=== PATIENT | female | born 1960 | race Caucasian/White ===

== ENCOUNTER 2019-04-07 10:37 | Inpatient (IN) ==
[2019-04-07] MEDS ORDERED: IOPAMIDOL 100 ML BOTTLE IV ONE (10:38)
[2019-04-07] MEDS ORDERED: IPRATROPIUM/ALBUTEROL 3 ML AMPUL.NEB NEB ONE ×3 (10:48→19:14)
--- NOTE | 2019-04-07 11:14 | Emergency Department Note ---
SOB HPI - General Chief Complaint: Shortness of Breath/Dyspnea Stated Complaint: SOB Time Seen by Provider: 04/07/19 10:49 Source: patient Mode of arrival: ambulatory Limitations: no limitations - History of Present Illness This 58-year-old female was sent over from pulmonary clinic with acute shortness of breath, 1 more dyspnea reported. Here she was able to ambulate and move and get around but had expiratory and expiratory wheezes and was given a DuoNeb. She is able to get up to go to the bathroom on her own. Oximetry was 95 to 98% on room air. Patient was given a DuoNeb due to inspiratory and expiratory wheezes with only mild benefit and so was given a second DuoNeb. She reports that the main reason she was sent over was that her lungs sounded bad. She has been using her home inhalers. She is not certain of all of her inhalers. She believes Spiriva and albuterol and then a nebulizer. 6 days ago she started to feel better. She had had onset about 2 weeks ago of upper respiratory type of symptoms. But then developed some diarrhea subsequently and since then its "been a struggle". She had a flu shot on the . She reports that she had an allergy to a steroid injection related to her shoulder sometime last year and was told by Dr. Olmos that she should not have any further steroids. She reported that her symptoms after the steroid shot included her blood pressure elevated her face felt burnt and red, etc. Records from Dr. Olmos's office were requested around 11:30 AM. REVIEW OF SYSTEMS: Has been checking her temperature at home and getting normal temperatures including 97.4. Has felt cold chills as well as some hot sweats at times. Has felt ear pain and runny nose began on the . Feels some tightness in her chest area but not specifically pain. Coughing is off and on but some worse. She has been using her nebulizer 4 times per day at home since the . Before this was using it only 2-3 times per week. No nausea or vomiting. She has had diarrhea for several days may be can as many as 5 or 6 days. She has had it once this morning. She describes it is quite watery. She has some chronic thigh achiness. Feels dizzy and lightheaded. Has a history of pulmonary embolus of uncertain origin. Was on warfarin for 10 months. This was back in 2017/early 2018. Previous H. pylori was treated. Previous hepatitis C which she had as a chronic condition was also treated and has had several test since that confirmed that it was cured. - Related Data Home Medications Medication Instructions Recorded Confirmed acetaminophen 500 mg tablet 500 mg PO Q6H 11/09/17 04/07/19 albuterol sulfate 90 mcg/actuation See Rx Instructions INHALATION QID 11/09/17 04/07/19 aerosol inhaler PRN g tiotropium bromide 2.5 2 puff INHALATION QDAY 11/09/17 04/07/19 mcg/actuation mist for inhalation omeprazole 20 mg capsule,delayed 40 mg PO QAM cap 03/13/18 04/07/19 release ibuprofen 200 mg capsule 200 mg PO Q6H 04/07/19 04/07/19 Allergies Allergy/AdvReac Type Severity Reaction Status Date / Time steriods AdvReac Severe Other Uncoded 09/17/18 09:48 Past Medical History - Past Medical History [facility] Narrative: Medical History (Last Updated 04/07/19 @ 11:12 by Inocente Ortega DO) History of tobacco use (Chronic) IV drug user (Chronic) Chronic obstructive lung disease (Chronic) Asthma (Chronic) History of pulmonary embolism (Chronic) Hypertension, essential (Chronic) History of bronchitis (Chronic) Cervical cancer (Chronic) Prediabetes (Chronic) Reactive airway disease (Chronic) Obesity (Chronic) History of malignant neoplasm of cervix (Chronic) Degeneration of intervertebral disc (Chronic) GERD (gastroesophageal reflux disease) (Chronic) Chronic hepatitis C (Chronic) H. pylori infection (Acute) Acute exacerbation of chronic obstructive airways disease with asthma (Resolved) Candidiasis of skin (Resolved) Dyspnea (Resolved) History of gastroenteritis (Resolved) Pulmonary embolism (Resolved) Viral gastroenteritis (Resolved) Hallux valgus (Inactive) Past Surgical History (Last Reviewed 04/07/19 @ 10:32 by ALEX Benavidez) History of adenoidectomy (Chronic) History of appendectomy (Chronic) History of hernia repair (Chronic) History of tonsillectomy (Chronic) History of total abdominal hysterectomy (Chronic) Family History (Last Reviewed 04/07/19 @ 10:33 by ALEX Benavidez) Sister Diabetes mellitus History of colectomy Mother Diabetes mellitus Grandmother Heart disease - Social History smoking status: Current some day smoker Physical Exam Limitations: no limitations General appearance: alert, consternation (Slight or mild), in distress (With some difficulties breathing but here 7 or 8 word dyspnea.), malaise (Mild-moderate) Head: atraumatic, normocephalic Eye: Present: EOMI ENT: Present: normal oropharynx, mucous membranes moist, TM's normal bilaterally Neck: Present: trachea midline. Absent: lymphadenopathy, thyromegaly Chest: Present: symmetric chest wall rise Respiratory: Present: respiratory distress, wheezes (Polyphonic foote expiratory in all lung espinosa.), accessory muscle use, prolonged expiratory phase (Slight or mild mild), other (Occasional wet cough). Absent: stridor Cardiovascular: Present: regular rate, normal rhythm. Absent: systolic murmur, diastolic murmur Abdominal: Present: soft. Absent: distention, tenderness, guarding, rebound, rigidity, organomegaly, mass Extremities: Absent: pedal edema, pretibial edema, calf tenderness Back: Absent: CVA tenderness (R), CVA tenderness (L), spinous process tenderness Neurological: Present: alert, oriented X3 Psychiatric: Present: anxious, serious. Absent: tearful, poor eye contact Skin: Present: warm, dry Course Vital Signs Temperature 97.0 F 04/07/19 10:37 Pulse Rate 95 H 04/07/19 10:37 Respiratory Rate 25 H 04/07/19 10:37 Blood Pressure 126/74 04/07/19 10:37 Pulse Oximetry (%) 95 04/07/19 10:37 Temperature 97 F 04/08/19 07:00 Pulse Rate 58 L 04/08/19 07:22 Respiratory Rate 16 04/08/19 07:22 Blood Pressure 118/74 04/08/19 07:00 Pulse Oximetry (%) 96 04/08/19 07:18 Shortness of Breath/Dyspnea - [facility] Narrative Medical decision making narrative: 11:07 AM - patient seen and interviewed. Market shortness of breath with histor y of similar and same with difficulties with steroid. We will try to get previous records. Labs, EKG, chest x-ray, ABG. 11:35 AM - EKG demonstrates lateral lead nonspecific changes. Old EKG reques lyndsey. 12:25 AM - old EKG from [facility] did not show the same nonspecific lateral lead changes. This was from earlier this year. 12:29 PM - respiratory therapist have been unable to do ABG after 4 attempts. Venous BG ordered. 12:31 PM - still with quite wheezy but not has rapid breathing. She still has mild polyphonic expiratory wheezes throughout the expiratory phase anteriorly. We will go with a heart neb. Because of headache I will give her some Tylenol. 1:15 PM -chest x-ray to me appears unremarkable for infiltrate or active disease. She has a history of PE. Her d-dimer is 0.543. Will do CT angio of the chest. 3:55 PM - patient is still wheezing quite dramatically or significantly and requiring some oxygen supplementation. I spoke with Dr. Campos, hospitalist, who kindly accepts this patient for admission due to COPD exacerbation, steroid allergy, hypoxia. - Lab Data Lab results reviewed: Yes I reviewed the patient's lab results. Result diagrams: 04/07/19 12:01 04/07/19 12:01 Lab Results 04/07/19 04/07/19 04/07/19 Range/Units 11:51 12:01 12:01 WBC 5.8 (4.5-11.0) K/mcL RBC 5.76 H (4.00-5.20) M/mcL Hgb 16.9 H (12.0-15.0) g/dL Hct 49.9 H (36.0-48.0) % MCV 86.6 (80.0-100.0) fL MCH 29.3 (26.0-34.0) pg MCHC 33.9 (31.0-36.0) g/dL RDW 13.8 (11.5-14.5) % Plt Count 149 (140-440) K/mcL MPV 8.2 (7.4-10.4) fL Gran % 66.9 (38.0-78.0) % Lymph % (Auto) 26.8 (15.5-49.0) % Brooks % (Auto) 5.6 (1.0-12.0) % Eos % (Auto) 0.5 (0.0-7.0) % Baso % (Auto) 0.2 (0.0-2.0) % Gran # 3.9 (1.8-8.0) K/mcL Lymph # (Auto) 1.6 (1.5-4.8) K/mcL Brooks # (Auto) 0.3 (0.1-0.9) K/mcL Eos # (Auto) 0 (0.0-0.7) K/mcL Baso # (Auto) 0 (0.0-0.3) K/mcL D-Dimer 0.53 H (0.00-0.40) ug/ml ABG Methemoglobin (0.4-1.5) % VBG pH (7.32-7.42) U VBG pCO2 (41.0-51.0) mmHg VBG pO2 (25-40) mmHg VBG HCO3 (24.0-28.0) mmol/L VBG Total CO2 (25.0-29.0) mmol/L VBG O2 Saturation (40.0-70.0) % VBG Base Excess (-2.0-2.0) Carboxyhemoglobin (0.0-1.5) % THgb Total Hemoglobin (12.0-15.0) gm/dL O2 Delivery Level Sodium (133-145) mmol/L Potassium (3.3-5.1) mmol/L Chloride (96-108) mmol/L Carbon Dioxide (22-30) mmol/L Anion Gap (8-16) BUN (6-20) mg/dl Creatinine (0.6-1.1) mg/dl GFR Calculation Glucose (70-105) mg/dL Calcium (8.6-10.4) mg/dl Total Bilirubin (0.0-1.0) mg/dL AST (0-37) U/l ALT (0-40) U/l Alkaline Phosphatase (39-117) U/L Troponin T < 0.01 (0-0.03) ng/ml C-Reactive Protein (0.0-0.8) mg/dl Total Protein (5.9-8.4) gm/dL Albumin (3.2-5.2) gm/dL Globulin (2.2-3.7) gm/dL Albumin/Globulin Ratio (1.0-2.3) Procalcitonin (<0.10) ng/mL 10/28/19 10/28/19 10/28/19 Range/Units 12:01 12:01 12:01 WBC (4.5-11.0) K/mcL RBC (4.00-5.20) M/mcL Hgb (12.0-15.0) g/dL Hct (36.0-48.0) % MCV (80.0-100.0) fL MCH (26.0-34.0) pg MCHC (31.0-36.0) g/dL RDW (11.5-14.5) % Plt Count (140-440) K/mcL MPV (7.4-10.4) fL Gran % (38.0-78.0) % Lymph % (Auto) (15.5-49.0) % Brooks % (Auto) (1.0-12.0) % Eos % (Auto) (0.0-7.0) % Baso % (Auto) (0.0-2.0) % Gran # (1.8-8.0) K/mcL Lymph # (Auto) (1.5-4.8) K/mcL Brooks # (Auto) (0.1-0.9) K/mcL Eos # (Auto) (0.0-0.7) K/mcL Baso # (Auto) (0.0-0.3) K/mcL D-Dimer (0.00-0.40) ug/ml ABG Methemoglobin 0.1 L (0.4-1.5) % VBG pH 7.46 H (7.32-7.42) U VBG pCO2 28.4 L (41.0-51.0) mmHg VBG pO2 123 H (25-40) mmHg VBG HCO3 19.7 L (24.0-28.0) mmol/L VBG Total CO2 20.6 L (25.0-29.0) mmol/L VBG O2 Saturation 94.9 H (40.0-70.0) % VBG Base Excess -2.6 L (-2.0-2.0) Carboxyhemoglobin 3.9 H (0.0-1.5) % THgb Total Hemoglobin 15.9 H (12.0-15.0) gm/dL O2 Delivery Level Not Reportable Sodium 136 (133-145) mmol/L Potassium 3.8 (3.3-5.1) mmol/L Chloride 101 (96-108) mmol/L Carbon Dioxide 19 L (22-30) mmol/L Anion Gap 16.0 (8-16) BUN 17 (6-20) mg/dl Creatinine 1.0 (0.6-1.1) mg/dl GFR Calculation 62 Glucose 189 H (70-105) mg/dL Calcium 9.8 (8.6-10.4) mg/dl Total Bilirubin 0.4 (0.0-1.0) mg/dL AST 23 (0-37) U/l ALT 12 (0-40) U/l Alkaline Phosphatase 53 (39-117) U/L Troponin T (0-0.03) ng/ml C-Reactive Protein (0.0-0.8) mg/dl Total Protein 7.5 (5.9-8.4) gm/dL Albumin 4.3 (3.2-5.2) gm/dL Globulin 3.2 (2.2-3.7) gm/dL Albumin/Globulin Ratio 1.3 (1.0-2.3) Procalcitonin < 0.05 (<0.10) ng/mL 04/07/19 Range/Units 12:31 WBC (4.5-11.0) K/mcL RBC (4.00-5.20) M/mcL Hgb (12.0-15.0) g/dL Hct (36.0-48.0) % MCV (80.0-100.0) fL MCH (26.0-34.0) pg MCHC (31.0-36.0) g/dL RDW (11.5-14.5) % Plt Count (140-440) K/mcL MPV (7.4-10.4) fL Gran % (38.0-78.0) % Lymph % (Auto) (15.5-49.0) % Brooks % (Auto) (1.0-12.0) % Eos % (Auto) (0.0-7.0) % Baso % (Auto) (0.0-2.0) % Gran # (1.8-8.0) K/mcL Lymph # (Auto) (1.5-4.8) K/mcL Brooks # (Auto) (0.1-0.9) K/mcL Eos # (Auto) (0.0-0.7) K/mcL Baso # (Auto) (0.0-0.3) K/mcL D-Dimer (0.00-0.40) ug/ml ABG Methemoglobin (0.4-1.5) % VBG pH (7.32-7.42) U VBG pCO2 (41.0-51.0) mmHg VBG pO2 (25-40) mmHg VBG HCO3 (24.0-28.0) mmol/L VBG Total CO2 (25.0-29.0) mmol/L VBG O2 Saturation (40.0-70.0) % VBG Base Excess (-2.0-2.0) Carboxyhemoglobin (0.0-1.5) % THgb Total Hemoglobin (12.0-15.0) gm/dL O2 Delivery Level Sodium (133-145) mmol/L Potassium (3.3-5.1) mmol/L Chloride (96-108) mmol/L Carbon Dioxide (22-30) mmol/L Anion Gap (8-16) BUN (6-20) mg/dl Creatinine (0.6-1.1) mg/dl GFR Calculation Glucose (70-105) mg/dL Calcium (8.6-10.4) mg/dl Total Bilirubin (0.0-1.0) mg/dL AST (0-37) U/l ALT (0-40) U/l Alkaline Phosphatase (39-117) U/L Troponin T (0-0.03) ng/ml C-Reactive Protein 0.8 (0.0-0.8) mg/dl Total Protein (5.9-8.4) gm/dL Albumin (3.2-5.2) gm/dL Globulin (2.2-3.7) gm/dL Albumin/Globulin Ratio (1.0-2.3) Procalcitonin (<0.10) ng/mL - Radiology Data Radiology results reviewed: Yes I reviewed the patient's radiology results. - EKG Data EKG attestation: Yes There are no EKG findings of acute coronary syndrome, Yes This EKG will be read by podiatric technician EKG shows normal: Reports: sinus rhythm Interpretation: Reports: nonspecific ST-T wave changes (In the lateral leads) Disposition Pt seen by PUBLIC RELATIONS COORDINATOR/PA only: No Clinical Impression: Acute exacerbation of chronic obstructive airways disease, Hypoxia, Allergy or intolerance to drug Disposition: Xfer As Inpt ([facility]) Condition: Fair
[2019-04-07] MEDS ORDERED: ACETAMINOPHEN 325 MG TABLET PO ONE ×2 (12:32→19:29)
[2019-04-07] MEDS ORDERED: ALBUTEROL SULFATE 5 MG/ML NEB SOLUTION BOTTLE NEB ONE (12:33)
[2019-04-07 12:37] LABS: Basophils # (Auto) 0 K/mcL (0.0-0.3); Basophils % (Auto) 0.2 % (0.0-2.0); Eosinophils # (Auto) 0 K/mcL (0.0-0.7); Eosinophils % (Auto) 0.5 % (0.0-7.0); Granulocytes % (Auto) 66.9 % (38.0-78.0); Hematocrit 49.9 % (36.0-48.0); Hemoglobin 16.9 g/dL (12.0-15.0); Lymphocytes # (Auto) 1.6 K/mcL (1.5-4.8); Lymphocytes % (Auto) 26.8 % (15.5-49.0); Mean Cell Volume 86.6 fL (80.0-100.0); Mean Corpuscular HGB Conc 33.9 g/dL (31.0-36.0); Mean Platelet Volume 8.2 fL (7.4-10.4); Monocytes # (Auto) 0.3 K/mcL (0.1-0.9); Monocytes % (Auto) 5.6 % (1.0-12.0); Platelet Count 149 K/mcL (140-440); RBC 5.76 M/mcL (4.00-5.20); Red Cell Distribution Width 13.8 % (11.5-14.5); WBC 5.8 K/mcL (4.5-11.0)
[2019-04-07 12:58] LABS: ABG Methemoglobin 0.1 % (0.4-1.5); Total Hemoglobin 15.9 gm/dL (12.0-15.0); VBG Base Excess -2.6 (-2.0-2.0); VBG HCO3 19.7 mmol/L (24.0-28.0); VBG Oxygen Saturation 94.9 % (40.0-70.0); VBG PCO2 28.4 mmHg (41.0-51.0); VBG PH 7.46 U (7.32-7.42); VBG PO2 123 mmHg (25-40); VBG Total CO2 20.6 mmol/L (25.0-29.0)
[2019-04-07 13:00] LABS: ALT/SGPT 12 U/l (0-40); AST/SGOT 23 U/l (0-37); Albumin 4.3 gm/dL (3.2-5.2); Albumin/Globulin Ratio 1.3 (1.0-2.3); Alkaline Phosphatase 53 U/L (39-117); Bilirubin,Total 0.4 mg/dL (0.0-1.0); Blood Urea Nitrogen 17 mg/dl (6-20); Calcium 9.8 mg/dl (8.6-10.4); Carbon Dioxide 19 mmol/L (22-30); Chloride 101 mmol/L (96-108); Globulin 3.2 gm/dL (2.2-3.7); Glomerular Filtration Rate 62; Glucose 189 mg/dL (70-105)
--- NOTE | 2019-04-07 14:09 | XRay Report ---
INDICATION: Dyspnea TECHNIQUE: PA and lateral upright chest x-ray COMPARISON: None FINDINGS:Lungs are negative. No parenchymal infiltrate or mass. Heart size and vascularity are normal. There is no pulmonary edema or pulmonary congestion Isabela and mediastinum are negative. There is no pleural fluid. Thoracic spine is negative IMPRESSION: Negative PA and lateral chest x-ray Interpreted and Authenticated by: Gino Acosta 04/07/19
--- NOTE | 2019-04-07 15:01 | Cat Scan Report ---
CLINICAL INFORMATION: History of pulmonary embolism. Dyspnea TECHNIQUE: axial postcontrast enhanced images through the chest. Sagittal and coronal reformatted images. MIP reformatted images. COMPARISON: Previous chest x-ray dated 04/07/2019 FINDINGS: Main pulmonary artery, right pulmonary artery, left pulmonary artery are negative. No intraluminal filling defects. No lobar, segmental, or subsegmental emboli. There is a small hiatal hernia. There is centrilobular emphysema in the upper lobes. This suggests a smoking history. Clinical correlation is necessary. There is mild bilateral lower lobe parenchymal infiltrate, right worse than left. Right lower lobe pneumonia is possible. There is also mild right lower lobe bronchiectasis. There is no pulmonary parenchymal mass. No hilar or mediastinal lymphadenopathy. There is no axillary adenopathy. The right hemithorax is smaller than the left. Clinical correlation for previous lobectomy recommended. There are no rib fractures. No sternal fracture. No vertebral body compression fractures IMPRESSION: 1. Negative pulmonary CTA 2. Mild centrilobular emphysema. Clinical correlation for smoking history recommended 3. Bilateral lower lobe infiltrate, right worse on left. Right lower lobe pneumonia is possible 4. Small hiatal hernia Interpreted and Authenticated by: Gino Acosta 04/07/19
--- NOTE | 2019-04-07 16:54 | Internal Med History&Physical ---
Medical - H&P: HPI Patient information: Note initiated : 04/07/19 at 4:48 pm Service Date, if different from initiated Date: [] Patient: Julisa Payne a 58 y/o F admitted on for Shortness of breath. Chief Complaint: [] History of present illness: Ms. Payne is a 58 year old F Presents to the ED with shortness of breath. Patient states that couple weeks ago she got cold symptoms putting some wheezing. Last Sunday she seemed to feel better and went for a walk. That night she was tired went to bed early and Sunday when she woke up she developed increasing shortness of breath more wheezing the symptoms progressed gradually through the rest of the week. 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 The office Dr. Hollis office by nurse practitioner who noted her labored breathing and sent her to the ED. In the ED work-up revealed what appeared to be a COPD exacerbation. She denies fevers or chills. She does have a headache. She has had diarrhea for the past couple days as well. She has a productive cough of green-yellow sputum. Her lungs feel tight. She does have history of PE and given her clear chest x-ray CTA was done which showed some mild lower lobe infiltrates right greater than left. Afebrile, PCT and CRP low, leukocytosis. Patient was given several breathing treatments. She was noted to be 87% on room air when she arrived. She has good sats on several liters but still appears a bit labored. She states she is intolerant to steroids. She had a shoulder injection steroid in the past as well as prednisone she says which gives her high blood pressure severe headache jitters and vomiting. Review of Systems: Positives as above. Denies fever/chills/nausea/vomiting/chest or abdominal pain/. Remaining 10 point review of system reviewed negative Medical - H&P: PM Medical history: Medical History (Last Updated 04/07/19 @ 13:19 by Inocente Ortega DO) History of tobacco use (Chronic) IV drug user (Chronic) Chronic obstructive lung disease (Chronic) Asthma (Chronic) History of pulmonary embolism (Chronic) Hypertension, essential (Chronic) History of bronchitis (Chronic) Cervical cancer (Chronic) Prediabetes (Chronic) Reactive airway disease (Chronic) Obesity (Chronic) History of malignant neoplasm of cervix (Chronic) Degeneration of intervertebral disc (Chronic) GERD (gastroesophageal reflux disease) (Chronic) Chronic hepatitis C (Chronic) H. pylori infection (Acute) Acute exacerbation of chronic obstructive airways disease with asthma (Resolved) Candidiasis of skin (Resolved) Dyspnea (Resolved) History of gastroenteritis (Resolved) Pulmonary embolism (Resolved) Viral gastroenteritis (Resolved) Hallux valgus (Inactive) Past Surgical History (Last Reviewed 04/07/19 @ 10:32 by ALEX Benavidez) History of adenoidectomy (Chronic) History of appendectomy (Chronic) History of hernia repair (Chronic) History of tonsillectomy (Chronic) History of total abdominal hysterectomy (Chronic) Family History (Last Reviewed 04/07/19 @ 10:33 by ALEX Benavidez) Sister Diabetes mellitus History of colectomy Mother Diabetes mellitus Grandmother Heart disease Social History (Last Updated 04/07/19 @ 10:36 by ALEX Benavidez) Smokes a pack per week denies alcohol use sometimes uses a cane lives at home with her son Medical - H&P: Meds Home Medications Medication Instructions Recorded Confirmed Type acetaminophen 500 mg tablet 500 mg PO Q6H 11/09/17 04/07/19 History albuterol sulfate 90 mcg/actuation See Rx Instructions INHALATION QID 11/09/17 04/07/19 History aerosol inhaler PRN g tiotropium bromide 2.5 2 puff INHALATION QDAY 11/09/17 04/07/19 History mcg/actuation mist for inhalation omeprazole 20 mg capsule,delayed 40 mg PO QAM cap 03/13/18 04/07/19 History release ibuprofen 200 mg capsule 200 mg PO Q6H 04/07/19 04/07/19 History Allergies Allergy/AdvReac Type Severity Reaction Status Date / Time steriods AdvReac Severe Other Uncoded 09/17/18 09:48 Medical - H&P: Exam - Constitutional Vitals: Temp Pulse Resp BP Pulse Ox 97.0 F 85 20 112/68 93 04/07/19 10:37 04/07/19 16:31 04/07/19 16:31 04/07/19 16:31 04/07/19 16:31 Exam: General: Alert, Awake, mild respiratory distress Eyes/N/T: EOMI, PEERL, DMM Head/Neck: neck supple, normocephalic atraumatic CV: RRR, No murmurs, normal s1/s2 Pulm: Diminished b/l, expiratory wheezing b/l, RLL rhonchi Abd: soft, nontender, +BS x4 Ext: no clubbing/cyanosis/edema Neuro: Alert, no focal deficits, moves all extremities, CN 2-12 grossly intact, symmetrical strength b/l upper/lower, sensations intact b/l upper/lower Skin: warm/dry Medical - H&P: Reslt - Labs CBC & Chem 7: 04/07/19 12:01 04/07/19 12:01 Labs: Short CBC 04/07/19 Range/Units 12:01 WBC 5.8 (4.5-11.0) K/mcL Hgb 16.9 H (12.0-15.0) g/dL Hct 49.9 H (36.0-48.0) % Plt Count 149 (140-440) K/mcL BMP 04/07/19 12:01 Sodium 136 Potassium 3.8 Chloride 101 Carbon Dioxide 19 L BUN 17 Creatinine 1.0 Glucose 189 H Calcium 9.8 Cardiac Enzymes 04/07/19 Range/Units 11:51 Troponin T < 0.01 (0-0.03) ng/ml Liver Function 04/07/19 Range/Units 12:01 Total Bilirubin 0.4 (0.0-1.0) mg/dL AST 23 (0-37) U/l ALT 12 (0-40) U/l Alkaline Phosphatase 53 (39-117) U/L Albumin 4.3 (3.2-5.2) gm/dL - ABG Interpretation ABG results: 04/07/19 12:01 ABG Methemoglobin 0.1 L VBG pH 7.46 H VBG pCO2 28.4 L VBG pO2 123 H VBG HCO3 19.7 L VBG Total CO2 20.6 L VBG O2 Saturation 94.9 H VBG Base Excess -2.6 L - Impressions CTA with some very mild infiltrate in the left and little bit more infiltrate in the right base Medical - H&P: A/P - Narrative A/P Narrative: A: *AECOPD: *Acute on chronic hypoxic respiratory failure: *Tobacco abuse: *GERD: * P: -yamilet/prn nebs -IS/Acapella/RT -Unable to use glucocorticoids given severe reaction -Empiric antibiotics -cont pulse ox -resp viral panel -f/u with pulmonology outpt -Smoking cessation counseling -ppx: lovenox/home ppi full code
[2019-04-07] MEDS ORDERED: LACTULOSE 20 GM/30 ML ORAL.SOL PO PRN (18:01)
[2019-04-07] MEDS ORDERED: DEXTROSE 50% 50 ML VIAL IV PRN (18:01)
[2019-04-07] MEDS ORDERED: POTASSIUM CHLORIDE 20 MEQ TABLET PO PRN ×2 (18:01)
[2019-04-07] MEDS ORDERED: IPRATROPIUM/ALBUTEROL 3 ML AMPUL.NEB NEB PRN (18:01)
[2019-04-07] MEDS ORDERED: POLYETHYLENE GLYCOL 3350 17 GM PACKET PO PRN (18:01)
[2019-04-07] MEDS ORDERED: DEXTROSE 31 GM ORAL.SUSP PO PRN (18:01)
[2019-04-07] MEDS ORDERED: POTASSIUM CHLORIDE 40 MEQ in DEXTROSE 5% IN WATER 500 ML IV PRN (18:01)
[2019-04-07] MEDS ORDERED: ONDANSETRON 4 MG/2 ML VIAL IV PRN (18:01)
[2019-04-07] MEDS ORDERED: MAGNESIUM SULFATE 2 GM/50 ML BAG IV PRN (18:01)
[2019-04-07] MEDS ORDERED: SENNOSIDES 1 TABLET PO PRN (18:01)
[2019-04-07] MEDS: 0.9 % SODIUM CHLORIDE 1,000 ML IV SCH (18:48)
[2019-04-07] MEDS: 0.9 % SODIUM CHLORIDE 10 ML SYRINGE IV SCH ×2 (18:48→21:56)
[2019-04-07] MEDS: AZITHROMYCIN 500 MG in DEXTROSE 5% IN WATER 250 ML IV SCH (18:58)
[2019-04-07] MEDS: IPRATROPIUM/ALBUTEROL 3 ML AMPUL.NEB NEB SCH (19:15)
[2019-04-07] MEDS: ACETAMINOPHEN 325 MG TABLET PO PRN (19:27)
[2019-04-07] MEDS: DOCUSATE SODIUM 100 MG CAPSULE PO SCH (21:57)
[2019-04-07] MEDS: MONTELUKAST 10 MG TABLET PO SCH (21:57)
[2019-04-08] MEDS: IPRATROPIUM/ALBUTEROL 3 ML AMPUL.NEB NEB SCH ×2 (01:20→07:17)
[2019-04-08] MEDS: 0.9 % SODIUM CHLORIDE 1,000 ML IV SCH (01:27)
[2019-04-08] MEDS: ACETAMINOPHEN 325 MG TABLET PO PRN ×3 (03:38→18:45)
[2019-04-08] MEDS: 0.9 % SODIUM CHLORIDE 10 ML SYRINGE IV SCH ×3 (05:22→21:10)
--- NOTE | 2019-04-08 07:08 | Internal Med Progress Note ---
Medical - PN: Subj Patient information: Note initiated : 04/08/19 at 7:05 am Service Date, if different from initiated Date: [] Patient: Julisa Payne a 58 y/o F admitted on 04/07/19 for Shortness of breath. Chief Complaint: [] Interval history: Ms. Payne is a 58 year old F Presents to the ED with shortness of breath. Patient states that couple weeks ago she got cold symptoms putting some wheezing. Last Sunday she seemed to feel better and went for a walk. That night she was tired went to bed early and Sunday when she woke up she developed increasing shortness of breath more wheezing the symptoms progressed gradually through the rest of the week. She had appointment with her asphalt dauber on Sunday and this waited that appointment instead of trying to get an appointment with PCP prior. The office Dr. Hollis office by nurse practitioner who noted her labored breathing and sent her to the ED. In the ED work-up revealed what appeared to be a COPD exacerbation. She denies fevers or chills. She does have a headache. She has had diarrhea for the past couple days as well. She has a productive cough of green-yellow sputum. Her lungs feel tight. She does have history of PE and given her clear chest x-ray CTA was done which showed some mild lower lobe infiltrates right greater than left. Afebrile, PCT and CRP low, leukocytosis. Patient was given several breathing treatments. She was noted to be 87% on room air when she arrived. She has good sats on several liters but still appears a bit labored. She states she is intolerant to steroids. She had a shoulder injection steroid in the past as well as prednisone she says which gives her high blood pressure severe headache jitters and vomiting. 04/08 Was feeling better this morning while she was getting up going to the bathroom brushing her teeth but then she had a coughing fit which left her very short of breath and labored breathing which she gradually and slowly recover from. She did maintain good oxygen saturations during the course. She feels like the albuterol gives her headache. Overall her cough and shortness of breath improved with the exception of this coughing fit Review of Systems: denies fever/chills/nausea/vomiting/chest or abdominal pain/diarrhea. Otherwise see above. - Constitutional Vitals: Vital Signs Temp Pulse Resp BP Pulse Ox 98.0 F 67 20 107/70 93 04/08/19 03:33 04/08/19 03:33 04/08/19 03:33 04/08/19 03:33 04/08/19 03:33 Period Temp Pulse Resp BP Sys/Berger Pulse Ox Last 24 Hr 97.0 F-98.3 F 67-109 8-27 96-156/63-104 87-98 Intake and Output 04/07/19 04/08/19 04/08/19 21:59 05:59 13:59 Intake Total 120 1855 Output Total 300 Balance 120 1555 Weight 86.183 kg Intake & Output: Intake & Output 04/07/19 04/08/19 04/08/19 21:59 05:59 13:59 Intake Total 120 1855 Output Total 300 Balance 120 1555 Weight 86.183 kg Intake: IV 1000 Sodium Chloride 0.9% 1,000 ml @ 1000 175 mls/hr IV .Q5H43M [facility] Rx#: [id number] Oral 120 855 Output: Void Amount 300 Other: Meal Dinner Percent of Meal Consumed 100% Feeding Ability Independent Urine Appearance Clear Urine Color Bright Yellow Exam: General: Alert, Awake, mild respiratory distress Eyes/N/T: EOMI, Head/Neck: neck supple, CV: RRR, No murmurs, Pulm: Diminished b/l, expiratory wheezing b/l, RLL rhonchi -all still present but improving Abd: soft, nontender, +BS x4 Ext: no clubbing/cyanosis/edema Neuro: Alert, no focal deficits, moves all extremities, Skin: warm/dry Medical - PN: Obj Da - Labs CBC & Chem 7: 04/07/19 12:01 04/07/19 12:01 Labs: Abnormal Lab Results 04/07/19 04/07/19 04/07/19 12:01 12:01 12:01 RBC Hgb Hct D-Dimer 0.53 H ABG Methemoglobin 0.1 L VBG pH 7.46 H VBG pCO2 28.4 L VBG pO2 123 H VBG HCO3 19.7 L VBG Total CO2 20.6 L VBG O2 Saturation 94.9 H VBG Base Excess -2.6 L Carboxyhemoglobin 3.9 H Total Hemoglobin 15.9 H Carbon Dioxide 19 L Glucose 189 H 04/07/19 12:01 RBC 5.76 H Hgb 16.9 H Hct 49.9 H D-Dimer ABG Methemoglobin VBG pH VBG pCO2 VBG pO2 VBG HCO3 VBG Total CO2 VBG O2 Saturation VBG Base Excess Carboxyhemoglobin Total Hemoglobin Carbon Dioxide Glucose Meds: Medications Acetaminophen (Tylenol) 650 mg PO Q6HP PRN PRN Reason: PAIN/FEVER > 101 Last Admin: 04/08/19 03:38 Dose: 650 mg Documented by: Albuterol/Ipratropium (Duoneb) 3 ml NEB Q4HP PRN PRN Reason: Shortness Of Breath Albuterol/Ipratropium (Duoneb) 3 ml NEB Q6HRT [facility] Last Admin: 04/08/19 01:20 Dose: 3 ml Documented by: Dextrose (Dextrose 50%) 0 ml IV UD PRN PRN Reason: Hypoglycemia Diagnostic Test (Pha) (Accu-Chek) 1 each FS ACHS [facility] Last Admin: 04/07/19 21:59 Dose: 1 each Documented by: Docusate Sodium (Colace) 100 mg PO BID [facility] Last Admin: 04/07/19 21:57 Dose: Not Given Documented by: Enoxaparin Sodium (Lovenox) 40 mg SQ DAILY [facility] Glucose (Insta-Glucose) 15 gm PO PRN PRN PRN Reason: Hypoglycemia Potassium Chloride 40 meq/ (Dextrose) 520 mls @ 130 mls/hr IV UD PRN PRN Reason: Potassium < 3 Azithromycin 500 mg/ Dextrose 250 mls @ 250 mls/hr IV Q24H [facility]; Protocol Stop: 04/09/19 19:00 Last Admin: 04/07/19 18:58 Dose: 250 mls/hr Documented by: Magnesium Sulfate (Magnesium Sulfate) 2 gm in 50 mls @ 50 mls/hr IV UD PRN PRN Reason: Magnesium </= 1.6 Lactulose (Cephulac) 10 gm PO DAILYP PRN PRN Reason: Constipation Montelukast Sodium (Singular) 10 mg PO HS [facility] Last Admin: 04/07/19 21:57 Dose: 10 mg Documented by: Omeprazole (Prilosec) 40 mg PO QAM [facility] Ondansetron HCl (Zofran) 4 mg IV Q4HP PRN PRN Reason: Nausea And Vomiting Polyethylene Glycol (Miralax) 17 gm PO DAILYP PRN PRN Reason: Constipation Potassium Chloride (Kdur) 40 meq PO UD PRN PRN Reason: Potssium is 3-3.5 Potassium Chloride (Kdur) 40 meq PO UD PRN PRN Reason: Potassium < 3 Senna (Senokot) 2 tab PO HSP PRN PRN Reason: Constipation Sodium Chloride (Saline Flush) 10 ml IV Q8 [facility] Last Admin: 04/08/19 05:22 Dose: Not Given Documented by: - ABG Interpretation ABG results: 04/07/19 12:01 ABG Methemoglobin 0.1 L VBG pH 7.46 H VBG pCO2 28.4 L VBG pO2 123 H VBG HCO3 19.7 L VBG Total CO2 20.6 L VBG O2 Saturation 94.9 H VBG Base Excess -2.6 L Medical - PN: A/P - Time Spent With Patient Total time spent is greater than 50% in coordination of care (as documented) at patient's floor/unit and/or counseling patient: - Narrative A/P Narrative: A: *AECOPD: improved with exception of coughing fits takes her sometime to recover but maintains sats *Acute on chronic hypoxic respiratory failure: -now on room air *Tobacco abuse: *GERD: * P: -yamilet/prn nebs, will switch albuterol to Xopenex in hopes of better tolerance -IS/Acapella/RT -Unable to use glucocorticoids given severe reaction -Empiric antibiotics -cont pulse ox -resp viral panel -f/u with pulmonology outpt -Smoking cessation counseling -ppx: lovenox/home ppi full code Medical - PN: Qual - Stroke Symptom Onset Unknown: No - VTE Deep Vein Thrombosis/Pulmonary Embolism Present on Admission: No
[2019-04-08 09:16] LABS: Basophils # (Auto) 0 K/mcL (0.0-0.3); Basophils % (Auto) 0.5 % (0.0-2.0); Eosinophils # (Auto) 0 K/mcL (0.0-0.7); Eosinophils % (Auto) 0.9 % (0.0-7.0); Granulocytes % (Auto) 46.7 % (38.0-78.0); Hematocrit 39.6 % (36.0-48.0); Hemoglobin 13.3 g/dL (12.0-15.0); Lymphocytes # (Auto) 1.9 K/mcL (1.5-4.8); Lymphocytes % (Auto) 44.5 % (15.5-49.0); Mean Cell Volume 87.2 fL (80.0-100.0); Mean Corpuscular HGB Conc 33.7 g/dL (31.0-36.0); Mean Platelet Volume 8.2 fL (7.4-10.4); Monocytes # (Auto) 0.3 K/mcL (0.1-0.9); Monocytes % (Auto) 7.4 % (1.0-12.0); Platelet Count 135 K/mcL (140-440); RBC 4.55 M/mcL (4.00-5.20); Red Cell Distribution Width 13.9 % (11.5-14.5); WBC 4.2 K/mcL (4.5-11.0)
[2019-04-08] MEDS: OMEPRAZOLE 20 MG CAPSULE PO SCH (09:25)
[2019-04-08 09:28] LABS: ALT/SGPT 11 U/l (0-40); AST/SGOT 19 U/l (0-37); Albumin 3.4 gm/dL (3.2-5.2); Albumin/Globulin Ratio 1.3 (1.0-2.3); Alkaline Phosphatase 39 U/L (39-117); Bilirubin,Direct < 0.2 mg/dL (0.0-0.3); Bilirubin,Total 0.2 mg/dL (0.0-1.0); Blood Urea Nitrogen 19 mg/dl (6-20); Calcium 8.5 mg/dl (8.6-10.4); Carbon Dioxide 19 mmol/L (22-30); Chloride 110 mmol/L (96-108); Globulin 2.6 gm/dL (2.2-3.7); Glomerular Filtration Rate 95; Glucose 99 mg/dL (70-105); Lactate Dehydrogenase 244 U/L (94-250); Phosphorous 3.4 mg/dL (2.7-4.5); Triglycerides 79 mg/dl (<150); Uric Acid 3.3 mg/dL (2.5-8.0)
[2019-04-08] MEDS: DOCUSATE SODIUM 100 MG CAPSULE PO SCH ×3 (09:28→21:05)
[2019-04-08] MEDS: ENOXAPARIN 40 MG/0.4 ML SYRINGE SQ SCH (09:28)
[2019-04-08] MEDS: AZITHROMYCIN 500 MG in DEXTROSE 5% IN WATER 250 ML IV SCH (09:33)
--- NOTE | 2019-04-08 09:49 | Discharge Summary ---
Medical - DS: Prov Patient information: Note initiated : 04/08/19 at 9:46 am Service Date, if different from initiated Date: [] Patient: Julisa Payne 58 y/o F admitted on 04/07/19 for Shortness of breath. Chief Complaint: [] Date of admission: 04/07/19 17:49 Primary care physician: Holley Stanley Consults: 04/07/19 Consult to Physician [CONS] Stat Comment: Consulting Provider: Kamar Campos Reason For Exam: Physician to Consult Medical - DS: Meds - Discharge Medications Active and Home Medications: Home Medications acetaminophen 500 mg tablet 500 mg PO Q6H 11/09/17 [History Confirmed 04/07/19 Last Taken 04/07/19 19:00] albuterol sulfate 90 mcg/actuation aerosol inhaler See Rx Instructions INHALATION QID PRN g 11/09/17 [History Confirmed 04/07/19 Last Taken 04/02/19 12:00] tiotropium bromide 2.5 mcg/actuation mist for inhalation 2 puff INHALATION QDAY 11/09/17 [History Confirmed 04/07/19 Last Taken 04/06/19 08:00] omeprazole 20 mg capsule,delayed release 40 mg PO QAM cap 03/13/18 [History Confirmed 04/07/19 Last Taken 04/06/19 08:00] ibuprofen 200 mg capsule 200 mg PO Q6H 04/07/19 [History Confirmed 04/07/19 Last Taken 04/06/19 20:30] Medical - DS: Hosp Hospital Course: Ms. Payne is a 58 year old F Presents to the ED with shortness of breath. Patient states that couple weeks ago she got cold symptoms putting some wheezing. Last Sunday she seemed to feel better and went for a walk. That night she was tired went to bed early and Sunday when she woke up she developed increasing shortness of breath more wheezing the symptoms progressed gradually through the rest of the week. She had appointment with her emts on Sunday and this waited that appointment instead of trying to get an appointment with PCP prior. The office Dr. Hollis office by nurse practitioner who noted her labored breathing and sent her to the ED. In the ED work-up revealed what appeared to be a COPD exacerbation. She denies fevers or chills. She does have a headache. She has had diarrhea for the past couple days as well. She has a productive cough of green-yellow sputum. Her lungs feel tight. She does have history of PE and given her clear chest x-ray CTA was done which showed some mild lower lobe infiltrates right greater than left. Afebrile, PCT and CRP low, leukocytosis. Patient was given several breathing treatments. She was noted to be 87% on room air when she arrived. She has good sats on several liters but still appears a bit labored. She states she is intolerant to steroids. She had a shoulder injection steroid in the past as well as prednisone she says which gives her high blood pressure severe headache jitters and vomiting. 04/08 Was feeling better this morning while she was getting up going to the bathroom brushing her teeth but then she had a coughing fit which left her very short of breath and labored breathing which she gradually and slowly recover from. She did maintain good oxygen saturations during the course. She feels like the albuterol gives her headache. Overall her cough and shortness of breath improved with the exception of this coughing fit Discharge diagnosis: Exacerbation COPD acute on chronic hypoxic respiratory failure Secondary discharge diagnosis: Tobacco abuse GERD - Time Spent with Patient Total time spent providing and/or coordinating discharge services: Greater than 30 minutes Medical - DS: Exam - Constitutional Vitals: Vital Signs Temp Pulse Pulse Resp BP BP Pulse Ox 04/08/19 08:00 97 F 78 16 118/74 96 04/08/19 07:22 58 L 16 04/08/19 07:18 96 04/08/19 07:17 96 04/08/19 07:00 97 F 20 118/74 95 04/08/19 03:33 98.0 F 67 20 107/70 93 04/08/19 01:15 94 04/07/19 23:06 98.3 F 72 22 116/72 95 04/07/19 21:55 97 04/07/19 19:56 85 22 97 04/07/19 19:55 97 04/07/19 19:15 89 20 04/07/19 19:10 98.0 F 78 24 H 156/80 94 04/07/19 19:08 98.0 F 78 24 H 126/80 94 04/07/19 18:20 94 04/07/19 17:56 97.0 F 85 14 113/77 95 04/07/19 17:31 85 14 113/77 95 04/07/19 17:01 80 20 104/64 92 04/07/19 16:46 84 21 107/63 92 04/07/19 16:31 85 20 112/68 93 04/07/19 16:19 88 14 116/66 93 04/07/19 16:11 97 H 24 H 97 04/07/19 15:56 88 11 L 94 04/07/19 15:34 101 H 21 97 04/07/19 15:28 89 8 L 93 04/07/19 14:31 97 H 24 H 122/77 89 L 04/07/19 14:18 102 H 24 H 121/78 89 L 04/07/19 14:01 109 H 20 122/81 89 L 04/07/19 13:50 100 H 20 04/07/19 13:47 106 H 18 146/89 93 04/07/19 13:16 97 H 21 123/77 92 04/07/19 13:01 98 H 24 H 132/81 92 04/07/19 12:47 98 H 21 115/104 94 04/07/19 12:31 98 H 20 131/80 90 04/07/19 12:16 100 H 27 H 127/84 87 L 04/07/19 12:01 101 H 25 H 114/92 93 04/07/19 11:53 101 H 139/85 93 04/07/19 11:37 98 H 20 04/07/19 11:31 100 H 14 123/97 98 04/07/19 11:30 98 H 96/85 94 04/07/19 11:27 103 H 18 04/07/19 11:01 102 H 117/85 98 04/07/19 10:49 101 H 137/94 98 04/07/19 10:37 97.0 F 95 H 25 H 126/74 95 Intake and Output 04/07/19 04/08/19 04/08/19 21:59 05:59 13:59 Intake Total 120 1855 Output Total 300 Balance 120 1555 Intake: IV 1000 Sodium Chloride 0.9% 1,000 ml @ 1000 175 mls/hr IV .Q5H43M [facility] Rx#: [id number] Oral 120 855 Output: Void Amount 300 Other: Meal Dinner Percent of Meal Consumed 100% Feeding Ability Independent Urine Appearance Clear Urine Color Bright Yellow Weight 86.183 kg Medical - DS: Data Labs on day of discharge: Labs from last 24 hours 04/08/19 04/08/19 04/07/19 06:29 06:29 12:31 WBC 4.2 L RBC 4.55 Hgb 13.3 Hct 39.6 MCV 87.2 MCH 29.3 MCHC 33.7 RDW 13.9 Plt Count 135 L MPV 8.2 Gran % 46.7 Lymph % (Auto) 44.5 [place] % (Auto) 7.4 Eos % (Auto) 0.9 Baso % (Auto) 0.5 Gran # 2.0 Lymph # (Auto) 1.9 [place] # (Auto) 0.3 Eos # (Auto) 0 Baso # (Auto) 0 D-Dimer ABG Methemoglobin VBG pH VBG pCO2 VBG pO2 VBG HCO3 VBG Total CO2 VBG O2 Saturation VBG Base Excess Carboxyhemoglobin Total Hemoglobin O2 Delivery Level Sodium 141 Potassium 4.1 Chloride 110 H Carbon Dioxide 19 L Anion Gap 12.0 BUN 19 Creatinine 0.7 GFR Calculation 95 Glucose 99 Uric Acid 3.3 Calcium 8.5 L Phosphorus 3.4 Magnesium 1.9 Total Bilirubin 0.2 Direct Bilirubin < 0.2 GGT 14 AST 19 ALT 11 Alkaline Phosphatase 39 Lactate Dehydrogenase 244 Troponin T C-Reactive Protein 0.8 Total Protein 6.0 Albumin 3.4 Globulin 2.6 Albumin/Globulin Ratio 1.3 Triglycerides 79 Procalcitonin 04/07/19 04/07/19 04/07/19 12:01 12:01 12:01 WBC RBC Hgb Hct MCV MCH MCHC RDW Plt Count MPV Gran % Lymph % (Auto) [place] % (Auto) Eos % (Auto) Baso % (Auto) Gran # Lymph # (Auto) [place] # (Auto) Eos # (Auto) Baso # (Auto) D-Dimer ABG Methemoglobin 0.1 L VBG pH 7.46 H VBG pCO2 28.4 L VBG pO2 123 H VBG HCO3 19.7 L VBG Total CO2 20.6 L VBG O2 Saturation 94.9 H VBG Base Excess -2.6 L Carboxyhemoglobin 3.9 H Total Hemoglobin 15.9 H O2 Delivery Level Not Reportable Sodium 136 Potassium 3.8 Chloride 101 Carbon Dioxide 19 L Anion Gap 16.0 BUN 17 Creatinine 1.0 GFR Calculation 62 Glucose 189 H Uric Acid Calcium 9.8 Phosphorus Magnesium Total Bilirubin 0.4 Direct Bilirubin GGT AST 23 ALT 12 Alkaline Phosphatase 53 Lactate Dehydrogenase Troponin T C-Reactive Protein Total Protein 7.5 Albumin 4.3 Globulin 3.2 Albumin/Globulin Ratio 1.3 Triglycerides Procalcitonin < 0.05 04/07/19 04/07/19 04/07/19 12:01 12:01 11:51 WBC 5.8 RBC 5.76 H Hgb 16.9 H Hct 49.9 H MCV 86.6 MCH 29.3 MCHC 33.9 RDW 13.8 Plt Count 149 MPV 8.2 Gran % 66.9 Lymph % (Auto) 26.8 [place] % (Auto) 5.6 Eos % (Auto) 0.5 Baso % (Auto) 0.2 Gran # 3.9 Lymph # (Auto) 1.6 [place] # (Auto) 0.3 Eos # (Auto) 0 Baso # (Auto) 0 D-Dimer 0.53 H ABG Methemoglobin VBG pH VBG pCO2 VBG pO2 VBG HCO3 VBG Total CO2 VBG O2 Saturation VBG Base Excess Carboxyhemoglobin Total Hemoglobin O2 Delivery Level Sodium Potassium Chloride Carbon Dioxide Anion Gap BUN Creatinine GFR Calculation Glucose Uric Acid Calcium Phosphorus Magnesium Total Bilirubin Direct Bilirubin GGT AST ALT Alkaline Phosphatase Lactate Dehydrogenase Troponin T < 0.01 C-Reactive Protein Total Protein Albumin Globulin Albumin/Globulin Ratio Triglycerides Procalcitonin Medical - DS: A/P - Patient/Caregiver Discharge Instructions Activity: increase activity as tolerated Diet: Regular Diet Additional Instructions: Smoking cessation - Follow up Plan Follow up with: Holley Stanley ARNP [Primary Care Provider] - Disposition: Home, Self-Care Prognosis: Fair Rehab Potential: Fair Overall status at discharge: patient is progressing back to baseline Medical - DS: Qual - VTE Deep Vein Thrombosis/Pulmonary Embolism Present on Admission: No
[2019-04-08] MEDS: LEVALBUTEROL 1.25 MG/3 ML AMPUL.NEB NEB SCH ×2 (13:17→18:53)
[2019-04-08] MEDS: IPRATROPIUM 2.5 ML AMPUL.NEB NEB SCH ×2 (13:17→18:53)
[2019-04-08] MEDS ORDERED: DEXTROSE 31 GM ORAL.SUSP PO PRN (17:01)
[2019-04-08] MEDS ORDERED: DEXTROSE 50% 50 ML VIAL IV PRN (17:01)
[2019-04-08] MEDS: BUTALB/ACETAMINOPHEN/CAFFEINE 1 TABLET PO PRN (20:02)
[2019-04-08] MEDS ORDERED: KETOROLAC 15 MG/ML VIAL IV ONE (20:19)
[2019-04-08] MEDS: MONTELUKAST 10 MG TABLET PO SCH (21:05)
[2019-04-08] MEDS: METHOCARBAMOL 1,000 MG/10 ML VIAL IV PRN (21:05)
[2019-04-08] MEDS: INSULIN LISPRO 1 UNIT/0.01 ML UNIT SQ SCH (21:27)
[2019-04-09] MEDS: IPRATROPIUM 2.5 ML AMPUL.NEB NEB SCH ×4 (01:29→16:53)
[2019-04-09] MEDS: LEVALBUTEROL 1.25 MG/3 ML AMPUL.NEB NEB SCH ×4 (01:36→16:54)
[2019-04-09] MEDS: 0.9 % SODIUM CHLORIDE 10 ML SYRINGE IV SCH ×3 (06:08→21:15)
[2019-04-09] MEDS ORDERED: guaiFENesin 600 MG TAB.SR.12H PO ONE (07:16)
--- NOTE | 2019-04-09 07:19 | Internal Med Progress Note ---
Medical - PN: Subj Patient information: Note initiated : 04/09/19 at 7:17 am Service Date, if different from initiated Date: [] Patient: Julisa Payne a 58 y/o F admitted on 04/07/19 for Shortness of breath. Chief Complaint: [] Interval history: Ms. Payne is a 58 year old F Presents to the ED with shortness of breath. Patient states that couple weeks ago she got cold symptoms putting some wheezing. Last Sunday she seemed to feel better and went for a walk. That night she was tired went to bed early and Sunday when she woke up she developed increasing shortness of breath more wheezing the symptoms progressed gradually through the rest of the week. She had appointment with her card puncher on Sunday and this waited that appointment instead of trying to get an appointment with PCP prior. The office Dr. Hollis office by nurse practitioner who noted her labored breathing and sent her to the ED. In the ED work-up revealed what appeared to be a COPD exacerbation. She denies fevers or chills. She does have a headache. She has had diarrhea for the past couple days as well. She has a productive cough of green-yellow sputum. Her lungs feel tight. She does have history of PE and given her clear chest x-ray CTA was done which showed some mild lower lobe infiltrates right greater than left. Afebrile, PCT and CRP low, leukocytosis. Patient was given several breathing treatments. She was noted to be 87% on room air when she arrived. She has good sats on several liters but still appears a bit labored. She states she is intolerant to steroids. She had a shoulder injection steroid in the past as well as prednisone she says which gives her high blood pressure severe headache jitters and vomiting. 04/08 Was feeling better this morning while she was getting up going to the bathroom brushing her teeth but then she had a coughing fit which left her very short of breath and labored breathing which she gradually and slowly recover from. She did maintain good oxygen saturations during the course. She feels like the albuterol gives her headache. Overall her cough and shortness of breath improved with the exception of this coughing fit 04/09 She is satting well on room air at rest. However she still looks quite labored in her breathing especially when she has coughing fits States. States she is 60% better. She feels like she has phlegm to cough up but she is unable to cough it out. Review of Systems: denies fever/chills/nausea/vomiting/chest or abdominal pain/diarrhea. Otherwise see above. - Constitutional Vitals: Vital Signs Temp Pulse Resp BP Pulse Ox 97.7 F 70 22 136/78 94 04/09/19 03:27 04/09/19 03:27 04/09/19 03:27 04/09/19 03:27 04/09/19 03:27 Period Temp Pulse Resp BP Sys/Berger Pulse Ox Last 24 Hr 97 F-98.1 F 58-85 16-24 116-156/71-80 94-96 Intake and Output 04/08/19 04/09/19 04/09/19 21:59 05:59 13:59 Intake Total 1430 175 Output Total 525 900 300 Balance 905 -725 -300 Weight 89.811 kg Intake & Output: Intake & Output 04/08/19 04/09/19 04/09/19 21:59 05:59 13:59 Intake Total 1430 175 Output Total 525 900 300 Balance 905 -725 -300 Weight 89.811 kg Intake: Oral 1430 175 Output: Void Amount 525 900 300 Other: Meal Dinner Percent of Meal Consumed 95% Feeding Ability Independent Urine Appearance Clear Clear Clear Urine Color Bright Yellow Bright Yellow Bright Yellow Urine Odor Normal Normal # Voids 2 Exam: General: Alert, Awake, mild respiratory distress Eyes/N/T: EOMI, Head/Neck: neck supple, CV: RRR, No murmurs, Pulm: Diminished b/l, expiratory wheezing b/l improved, mild b/l rhonchi Abd: soft, nontender, +BS x4 Ext: no clubbing/cyanosis/edema Neuro: Alert, no focal deficits, moves all extremities, Skin: warm/dry Medical - PN: Obj Da - Labs CBC & Chem 7: 04/08/19 06:29 04/08/19 06:29 Labs: Abnormal Lab Results 04/08/19 04/08/19 04/07/19 06:29 06:29 12:01 WBC 4.2 L RBC Hgb Hct Plt Count 135 L D-Dimer ABG Methemoglobin 0.1 L VBG pH 7.46 H VBG pCO2 28.4 L VBG pO2 123 H VBG HCO3 19.7 L VBG Total CO2 20.6 L VBG O2 Saturation 94.9 H VBG Base Excess -2.6 L Carboxyhemoglobin 3.9 H Total Hemoglobin 15.9 H Chloride 110 H Carbon Dioxide 19 L Glucose Calcium 8.5 L 04/07/19 04/07/19 04/07/19 12:01 12:01 12:01 WBC RBC 5.76 H Hgb 16.9 H Hct 49.9 H Plt Count D-Dimer 0.53 H ABG Methemoglobin VBG pH VBG pCO2 VBG pO2 VBG HCO3 VBG Total CO2 VBG O2 Saturation VBG Base Excess Carboxyhemoglobin Total Hemoglobin Chloride Carbon Dioxide 19 L Glucose 189 H Calcium Meds: Medications Acetaminophen (Tylenol) 650 mg PO Q6HP PRN PRN Reason: PAIN/FEVER > 101 Last Admin: 04/08/19 18:45 Dose: 650 mg Documented by: Acetaminophen/Butalbital/Caffeine (Fioricet) 1 tab PO Q6HP PRN PRN Reason: Headache Last Admin: 04/08/19 20:02 Dose: 1 tab Documented by: Albuterol/Ipratropium (Duoneb) 3 ml NEB Q4HP PRN PRN Reason: Shortness Of Breath Dextrose (Dextrose 50%) 0 ml IV UD PRN PRN Reason: Hypoglycemia Diagnostic Test (Pha) (Accu-Chek) 1 each FS ACHS [facility] Last Admin: 04/08/19 21:04 Dose: 1 each Documented by: Docusate Sodium (Colace) 100 mg PO BID [facility] Last Admin: 04/08/19 21:05 Dose: 100 mg Documented by: Enoxaparin Sodium (Lovenox) 40 mg SQ DAILY [facility] Last Admin: 04/08/19 09:28 Dose: 40 mg Documented by: Glucose (Insta-Glucose) 15 gm PO PRN PRN PRN Reason: Hypoglycemia Potassium Chloride 40 meq/ (Dextrose) 520 mls @ 130 mls/hr IV UD PRN PRN Reason: Potassium < 3 Azithromycin 500 mg/ Dextrose 250 mls @ 250 mls/hr IV Q24H [facility]; Protocol Stop: 04/09/19 19:00 Last Infusion: 04/08/19 10:33 Dose: Infused Documented by: Magnesium Sulfate (Magnesium Sulfate) 2 gm in 50 mls @ 50 mls/hr IV UD PRN PRN Reason: Magnesium </= 1.6 Insulin Human Lispro (Humalog) 0 unit SQ ACHS [facility]; Protocol Last Admin: 04/08/19 21:27 Dose: 2 unit Documented by: Ipratropium [place] (Atrovent) 2.5 ml NEB Q6HRT [facility] Last Admin: 04/09/19 07:14 Dose: 2.5 ml Documented by: Lactulose (Cephulac) 10 gm PO DAILYP PRN PRN Reason: Constipation Levalbuterol HCl (Xopenex) 1.25 mg NEB Q6HRT [facility] Last Admin: 04/09/19 07:14 Dose: 1.25 mg Documented by: Methocarbamol (Robaxin) 750 mg IV Q6HP PRN PRN Reason: Muscle Spasm Last Admin: 04/08/19 21:05 Dose: 750 mg Documented by: Montelukast Sodium (Singular) 10 mg PO HS [facility] Last Admin: 04/08/19 21:05 Dose: 10 mg Documented by: Omeprazole (Prilosec) 40 mg PO QAM [facility] Last Admin: 04/08/19 09:25 Dose: 40 mg Documented by: Ondansetron HCl (Zofran) 4 mg IV Q4HP PRN PRN Reason: Nausea And Vomiting Polyethylene Glycol (Miralax) 17 gm PO DAILYP PRN PRN Reason: Constipation Potassium Chloride (Kdur) 40 meq PO UD PRN PRN Reason: Potssium is 3-3.5 Potassium Chloride (Kdur) 40 meq PO UD PRN PRN Reason: Potassium < 3 Senna (Senokot) 2 tab PO HSP PRN PRN Reason: Constipation Sodium Chloride (Saline Flush) 10 ml IV Q8 [facility] Last Admin: 04/09/19 06:08 Dose: 10 ml Documented by: - ABG Interpretation ABG results: 04/07/19 12:01 ABG Methemoglobin 0.1 L VBG pH 7.46 H VBG pCO2 28.4 L VBG pO2 123 H VBG HCO3 19.7 L VBG Total CO2 20.6 L VBG O2 Saturation 94.9 H VBG Base Excess -2.6 L Medical - PN: A/P - Time Spent With Patient Total time spent is greater than 50% in coordination of care (as documented) at patient's floor/unit and/or counseling patient: - Narrative A/P Narrative: *AECOPD: improving -(+) Parainfluenza 1 *Acute on chronic hypoxic respiratory failure: -now on room air at rest but still quite labored in her breathing especially with coughing fits *Tobacco abuse: *GERD: * P: -yamilet/prn nebs, -IS/Acapella/RT -Unable to use glucocorticoids given severe reaction -Empiric antibiotics -mucinex started today -cont pulse ox -f/u with pulmonology outpt -may need home O2 eval when ambulating -Smoking cessation counseling -ppx: lovenox/home ppi full code Medical - PN: Qual - Stroke Symptom Onset Unknown: No - VTE Deep Vein Thrombosis/Pulmonary Embolism Present on Admission: No
[2019-04-09] MEDS: INSULIN LISPRO 1 UNIT/0.01 ML UNIT SQ SCH ×4 (08:03→21:15)
[2019-04-09] MEDS: ENOXAPARIN 40 MG/0.4 ML SYRINGE SQ SCH (09:19)
[2019-04-09] MEDS: OMEPRAZOLE 20 MG CAPSULE PO SCH (09:19)
[2019-04-09] MEDS: DOCUSATE SODIUM 100 MG CAPSULE PO SCH ×2 (09:20→21:13)
[2019-04-09] MEDS: BUTALB/ACETAMINOPHEN/CAFFEINE 1 TABLET PO PRN ×2 (09:22→19:49)
[2019-04-09] MEDS: AZITHROMYCIN 500 MG in DEXTROSE 5% IN WATER 250 ML IV SCH (09:30)
[2019-04-09] MEDS: METHOCARBAMOL 1,000 MG/10 ML VIAL IV PRN ×2 (10:36→20:00)
[2019-04-09] MEDS: BENZONATATE 100 MG CAPSULE PO PRN (16:00)
[2019-04-09] MEDS: BENZOCAINE/MENTHOL 1 LOZENGE PO PRN ×2 (16:01→19:49)
[2019-04-09] MEDS: LORazepam 0.5 MG TABLET PO PRN (19:49)
[2019-04-09] MEDS: MONTELUKAST 10 MG TABLET PO SCH (21:12)
[2019-04-09] MEDS: guaiFENesin 600 MG TAB.SR.12H PO SCH ×2 (21:12→21:15)
[2019-04-10] MEDS: LEVALBUTEROL 1.25 MG/3 ML AMPUL.NEB NEB SCH ×2 (00:29→12:33)
[2019-04-10] MEDS: IPRATROPIUM 2.5 ML AMPUL.NEB NEB SCH ×3 (00:30→15:38)
[2019-04-10] MEDS: 0.9 % SODIUM CHLORIDE 10 ML SYRINGE IV SCH ×3 (07:48→20:31)
[2019-04-10] MEDS: INSULIN LISPRO 1 UNIT/0.01 ML UNIT SQ SCH ×4 (07:48→20:32)
[2019-04-10] MEDS: guaiFENesin 600 MG TAB.SR.12H PO SCH ×2 (09:44→20:30)
[2019-04-10] MEDS: ENOXAPARIN 40 MG/0.4 ML SYRINGE SQ SCH (09:44)
[2019-04-10] MEDS: METHOCARBAMOL 1,000 MG/10 ML VIAL IV PRN ×2 (09:44→23:40)
[2019-04-10] MEDS: OMEPRAZOLE 20 MG CAPSULE PO SCH (09:44)
[2019-04-10] MEDS ORDERED: BUDESONIDE 0.5 MG/2 ML AMPUL.NEB NEB ONE (10:05)
[2019-04-10] MEDS: DOCUSATE SODIUM 100 MG CAPSULE PO SCH ×2 (11:51→20:30)
[2019-04-10] MEDS: LORazepam 0.5 MG TABLET PO PRN ×2 (11:52→20:30)
[2019-04-10] MEDS: BENZONATATE 100 MG CAPSULE PO PRN ×2 (11:52→20:30)
[2019-04-10] MEDS: LEVALBUTEROL 1.25 MG/3 ML AMPUL.NEB NEB PRN ×2 (15:39→19:29)
--- NOTE | 2019-04-10 19:41 | Internal Med Progress Note ---
Medical - PN: Subj Patient information: Note initiated : 04/10/19 at 7:30 pm Service Date, if different from initiated Date: [] Patient: Julisa Payne a 58 y/o F admitted on 04/07/19 for Shortness of breath. Chief Complaint: f/u COPD Interval history: 04/07 Ms. Payne is a 58 year old F Presents to the ED with shortness of breath. Patient states that couple weeks ago she got cold symptoms putting some wheezing. Last Sunday she seemed to feel better and went for a walk. That night she was tired went to bed early and Sunday when she woke up she developed increasing shortness of breath more wheezing the symptoms progressed gradually through the rest of the week. 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 The office Dr. Hollis office by nurse practitioner who noted her labored breathing and sent her to the ED. In the ED work-up revealed what appeared to be a COPD exacerbation. She denies fevers or chills. She does have a headache. She has had diarrhea for the past couple days as well. She has a productive cough of green-yellow sputum. Her lungs feel tight. She does have history of PE and given her clear chest x-ray CTA was done which showed some mild lower lobe infiltrates right greater than left. Afebrile, PCT and CRP low, leukocytosis. Patient was given several breathing treatments. She was noted to be 87% on room air when she arrived. She has good sats on several liters but still appears a bit labored. She states she is intolerant to steroids. She had a shoulder injection steroid in the past as well as prednisone she says which gives her high blood pressure severe headache jitters and vomiting. 04/08 Was feeling better this morning while she was getting up going to the bathroom brushing her teeth but then she had a coughing fit which left her very short of breath and labored breathing which she gradually and slowly recover from. She did maintain good oxygen saturations during the course. She feels like the albuterol gives her headache. Overall her cough and shortness of breath improved with the exception of this coughing fit 04/09 She is satting well on room air at rest. However she still looks quite labored in her breathing especially when she has coughing fits States. States she is 60% better. She feels like she has phlegm to cough up but she is unable to cough it out. 04/10 Continues with significant cough and wheezing in spasms. Getting Atrovent plus levo albuterol. At home uses Spiriva as well. She has reaction to systemic steroids, when she received a intra-articular injection as well as when she has taken prednisone in the past. It sounds that she has used inhaled steroids in the past, she recognizes the names Advair and Flovent. She did agree to try and nebulized Pulmicort, which she did tolerate and has been started. - Constitutional Vitals: Vital Signs Temp Pulse Resp BP Pulse Ox 98.1 F 79 22 137/81 97 04/10/19 19:23 04/10/19 19:23 04/10/19 19:23 04/10/19 19:23 04/10/19 19:23 Period Temp Pulse Resp BP Sys/Berger Pulse Ox Last 24 Hr 97.9 F-99.1 F 64-80 18-24 122-150/68-86 91-97 Intake and Output 04/10/19 04/10/19 04/10/19 05:59 13:59 21:59 Intake Total 650 250 Output Total 550 700 Balance 100 -700 250 Intake & Output: Intake & Output 04/10/19 04/10/19 04/10/19 05:59 13:59 21:59 Intake Total 650 250 Output Total 550 700 Balance 100 -700 250 Intake: IV 250 Zithromax 500 mg In Dextrose 5% 250 in Water 250 ml @ 250 mls/hr IV Q24H [facility] Rx#:[id number] Oral 650 Output: Void Amount 550 700 Other: Urine Appearance Clear Urine Color Bright Yellow Urine Odor Normal Stool Size Small Stool Color Brown Stool Consistency Normal for Patient Soft Exam: General: Uncomfortable appearing, proximal-isms of cough Chest: Scattered expiratory wheezes. Mildly prolonged expiratory phase Cardiovascular: Regular, intermittently tachycardic, no edema Abdomen: Soft, nontender Neuro: Alert, oriented x3, nonfocal Medical - PN: Obj Da - Labs CBC & Chem 7: 04/08/19 06:29 04/08/19 06:29 Labs: Abnormal Lab Results 04/08/19 04/08/19 06:29 06:29 WBC 4.2 L Plt Count 135 L Chloride 110 H Carbon Dioxide 19 L Calcium 8.5 L Meds: Medications Acetaminophen (Tylenol) 650 mg PO Q6HP PRN PRN Reason: PAIN/FEVER > 101 Last Admin: 04/08/19 18:45 Dose: 650 mg Documented by: Acetaminophen/Butalbital/Caffeine (Fioricet) 1 tab PO Q6HP PRN PRN Reason: Headache Last Admin: 04/09/19 19:49 Dose: 1 tab Documented by: Benzonatate (Tessalon) 100 mg PO TIDP PRN PRN Reason: Cough Last Admin: 04/10/19 11:52 Dose: 100 mg Documented by: Budesonide (Pulmicort) 0.5 mg NEB Q12 JOHN Dextrose (Dextrose 50%) 0 ml IV UD PRN PRN Reason: Hypoglycemia Diagnostic Test (Pha) (Accu-Chek) 1 each FS [facility] Last Admin: 04/10/19 16:50 Dose: 1 each Documented by: Docusate Sodium (Colace) 100 mg PO BID [facility] Last Admin: 04/10/19 11:51 Dose: Not Given Documented by: Enoxaparin Sodium (Lovenox) 40 mg SQ DAILY [facility] Last Admin: 04/10/19 09:44 Dose: 40 mg Documented by: Glucose (Insta-Glucose) 15 gm PO PRN PRN PRN Reason: Hypoglycemia Guaifenesin (Mucinex) 600 mg PO BID JOHN Last Admin: 04/10/19 09:44 Dose: 600 mg Documented by: Potassium Chloride 40 meq/ (Dextrose) 520 mls @ 130 mls/hr IV UD PRN PRN Reason: Potassium < 3 Magnesium Sulfate (Magnesium Sulfate) 2 gm in 50 mls @ 50 mls/hr IV UD PRN PRN Reason: Magnesium </= 1.6 Insulin Human Lispro (Humalog) 0 unit SQ ACHS [facility]; Protocol Last Admin: 04/10/19 16:50 Dose: Not Given Documented by: Ipratropium Osborne (Atrovent) 2.5 ml NEB Q8H JOHN Last Admin: 04/10/19 15:38 Dose: 2.5 ml Documented by: Lactulose (Cephulac) 10 gm PO DAILYP PRN PRN Reason: Constipation Last Admin: 04/10/19 13:04 Dose: 10 gm Documented by: Levalbuterol HCl (Xopenex) 1.25 mg NEB Q4HP PRN PRN Reason: Dyspnea Last Admin: 04/10/19 19:29 Dose: 1.25 mg Documented by: Lorazepam (Ativan) 0.5 mg PO Q4HP PRN PRN Reason: ANXIETY/SEDATION Last Admin: 04/10/19 11:52 Dose: 0.5 mg Documented by: Methocarbamol (Robaxin) 750 mg IV Q6HP PRN PRN Reason: Muscle Spasm Last Admin: 04/10/19 09:44 Dose: 750 mg Documented by: Montelukast Sodium (Singular) 10 mg PO HS [facility] Last Admin: 04/09/19 21:12 Dose: 10 mg Documented by: Omeprazole (Prilosec) 40 mg PO QAM [facility] Last Admin: 04/10/19 09:44 Dose: 40 mg Documented by: Ondansetron HCl (Zofran) 4 mg IV Q4HP PRN PRN Reason: Nausea And Vomiting Polyethylene Glycol (Miralax) 17 gm PO DAILYP PRN PRN Reason: Constipation Last Admin: 04/10/19 19:22 Dose: 17 gm Documented by: Potassium Chloride (Kdur) 40 meq PO UD PRN PRN Reason: Potssium is 3-3.5 Potassium Chloride (Kdur) 40 meq PO UD PRN PRN Reason: Potassium < 3 Senna (Senokot) 2 tab PO HSP PRN PRN Reason: Constipation Sodium Chloride (Saline Flush) 10 ml IV Q8 [facility] Last Admin: 04/10/19 13:11 Dose: 10 ml Documented by: Throat Lozenges (Cepacol) 1 lozenge PO PRN PRN PRN Reason: Sore Throat Last Admin: 04/09/19 19:49 Dose: 1 lozenge Documented by: - ABG Interpretation ABG results: 04/07/19 12:01 ABG Methemoglobin 0.1 L VBG pH 7.46 H VBG pCO2 28.4 L VBG pO2 123 H VBG HCO3 19.7 L VBG Total CO2 20.6 L VBG O2 Saturation 94.9 H VBG Base Excess -2.6 L Medical - PN: A/P - Time Spent With Patient Total time spent is greater than 50% in coordination of care (as documented) at patient's floor/unit and/or counseling patient: Greater than 35 minutes - Narrative A/P Narrative: 58-year-old female with history of COPD presents with acute exacerbation. AECOPD, secondary to parainfluenza virus 1. Still with significant bron chospasm, though is slowly improving. Intolerant of systemic steroids, though did tolerate Pulmicort. Plan: Continue ipratropium, continue levo albuterol, scheduled twice daily Pulmicort, continue flutter valve and mucolytic's. Continue empiric antibiotics. Outpatient follow-up with pulmonary Acute hypoxic respiratory failure. Saturating well on room air. Still gets quite dyspneic with coughing spells. Plan: Supplemental oxygen as needed Tobacco abuse. Active. Plan: Smoking cessation counseling GERD. Stable. Plan: Continue home PPI ppx: lovenox/home ppi full code Medical - PN: Qual - Stroke Symptom Onset Unknown: No - VTE Deep Vein Thrombosis/Pulmonary Embolism Present on Admission: No
[2019-04-10] MEDS: MONTELUKAST 10 MG TABLET PO SCH (20:30)
[2019-04-10] MEDS: BUDESONIDE 0.5 MG/2 ML AMPUL.NEB NEB SCH (20:55)
[2019-04-11] MEDS: IPRATROPIUM 2.5 ML AMPUL.NEB NEB SCH ×2 (04:35→07:15)
[2019-04-11] MEDS: 0.9 % SODIUM CHLORIDE 10 ML SYRINGE IV SCH (05:26)
[2019-04-11] MEDS: BUDESONIDE 0.5 MG/2 ML AMPUL.NEB NEB SCH (07:09)
[2019-04-11] MEDS: INSULIN LISPRO 1 UNIT/0.01 ML UNIT SQ SCH ×2 (07:26→11:23)
[2019-04-11] MEDS: BENZONATATE 100 MG CAPSULE PO PRN (07:37)
[2019-04-11] MEDS: LORazepam 0.5 MG TABLET PO PRN (07:38)
[2019-04-11] MEDS: ENOXAPARIN 40 MG/0.4 ML SYRINGE SQ SCH (07:38)
[2019-04-11] MEDS: DOCUSATE SODIUM 100 MG CAPSULE PO SCH (07:38)
[2019-04-11] MEDS: OMEPRAZOLE 20 MG CAPSULE PO SCH (07:38)
[2019-04-11] MEDS: METHOCARBAMOL 1,000 MG/10 ML VIAL IV PRN (07:58)
[2019-04-11] MEDS: guaiFENesin 600 MG TAB.SR.12H PO SCH (07:59)
--- NOTE | 2019-04-11 10:50 | Discharge Summary ---
Medical - DS: Prov Patient information: Note initiated : 04/11/19 at 10:47 am Service Date, if different from initiated Date: [] Patient: Julisa Payne 58 y/o F admitted on 04/07/19 for Shortness of breath. Chief Complaint: [] Date of admission: 04/07/19 17:49 Discharge date: 04/11/19 Primary care physician: Holley Stanley Admitting clinician: Kamar Campos Consults: 04/07/19 Consult to Physician [CONS] Stat Comment: Consulting Provider: Kamar Campos Reason For Exam: Physician to Consult Discharging clinician: Sarah Thurman Medical - DS: Meds - Discharge Medications Prescriptions: Fluticasone Hfa 220Mcg [Flovent Hfa 220Mcg] 1 puff INH BID #1 inhaler Transmission Status: Sent to [facility] Promethazine HCl/Codeine [Prometh-Codein 6.25-10 mg/5 ml] 5 ml PO Q6H PRN 3 Days PRN Reason: Cough Prescription Printed Benzonatate [Tessalon] 100 mg PO TIDP PRN #15 cap PRN Reason: Cough Transmission Status: Sent to [facility] Active and Home Medications: Home Medications acetaminophen 500 mg tablet 500 mg PO Q6H 11/09/17 [History Confirmed 04/07/19 Last Taken 04/07/19 19:00] albuterol sulfate 90 mcg/actuation aerosol inhaler See Rx Instructions INHALATION QID PRN g 11/09/17 [History Confirmed 04/07/19 Last Taken 04/02/19 12:00] tiotropium bromide 2.5 mcg/actuation mist for inhalation 2 puff INHALATION QDAY 11/09/17 [History Confirmed 04/07/19 Last Taken 04/06/19 08:00] omeprazole 20 mg capsule,delayed release 40 mg PO QAM cap 03/13/18 [History Confirmed 04/07/19 Last Taken 04/06/19 08:00] ibuprofen 200 mg capsule 200 mg PO Q6H 04/07/19 [History Confirmed 04/07/19 Last Taken 04/06/19 20:30] Medical - DS: Hosp Hospital Course: 04/07 Ms. Payne is a 58 year old F Presents to the ED with shortness of breath. Patient states that couple weeks ago she got cold symptoms putting some wheezing. Last Sunday she seemed to feel better and went for a walk. That night she was tired went to bed early and Sunday when she woke up she developed increasing shortness of breath more wheezing the symptoms progressed gradually through the rest of the week. She had appointment with her staff counselor on Sunday and this waited that appointment instead of trying to get an appointment with PCP prior. The office Dr. Hollis office by nurse practitioner who noted her labored breathing and sent her to the ED. In the ED work-up revealed what appeared to be a COPD exacerbation. She denies fevers or chills. She does have a headache. She has had diarrhea for the past couple days as well. She has a productive cough of green-yellow sputum. Her lungs feel tight. She does have history of PE and given her clear chest x-ray CTA was done which showed some mild lower lobe infiltrates right greater than left. Afebrile, PCT and CRP low, leukocytosis. Patient was given several breathing treatments. She was noted to be 87% on room air when she arrived. She has good sats on several liters but still appears a bit labored. She states she is intolerant to steroids. She had a shoulder injection steroid in the past as well as prednisone she says which gives her high blood pressure severe headache jitters and vomiting. 04/08 Was feeling better this morning while she was getting up going to the bathroom brushing her teeth but then she had a coughing fit which left her very short of breath and labored breathing which she gradually and slowly recover from. She did maintain good oxygen saturations during the course. She feels like the albuterol gives her headache. Overall her cough and shortness of breath improved with the exception of this coughing fit. 04/09 She is satting well on room air at rest. However she still looks quite labored in her breathing especially when she has coughing fits States. States she is 60% better. She feels like she has phlegm to cough up but she is unable to cough it out. 04/10 Continues with significant cough and wheezing in spasms. Getting Atrovent plus levo albuterol. At home uses Spiriva as well. She has reaction to systemic steroids, when she received a intra-articular injection as well as when she has taken prednisone in the past. It sounds that she has used inhaled steroids in the past, she recognizes the names Advair and Flovent. She did agree to try and nebulized Pulmicort, which she did tolerate and has been started. 04/11 As tolerated Pulmicort without problems. Breathing is improved. Still with nonproductive cough, though less wheezing and bronchospasm. Using flutter valve and incentive spirometer. She uses Flonase nasal steroids without problems during allergy season. Her intolerance to steroids seems to be when given systemically or injected locally. Will prescribe Flovent as an outpatient, which is covered by her insurance. Of note, respiratory virus panel collected on admission was positive for parainfluenza virus 1. Discharge diagnosis: COPD exacerbation secondary to parainfluenza virus 1 Time spent discussing smoking cessation with patient: 3 to 10 minutes - Time Spent with Patient Total time spent providing and/or coordinating discharge services: Greater than 30 minutes Medical - DS: Exam - Constitutional Vitals: Vital Signs Temp Pulse Pulse Pulse Resp BP Pulse Ox 04/11/19 08:00 22 96 04/11/19 07:27 95 04/11/19 07:23 97.7 F 24 H 138/84 96 04/11/19 04:00 98.8 F 70 20 134/80 96 04/11/19 00:00 97.9 F 69 22 136/81 97 04/10/19 19:43 79 20 96 04/10/19 19:42 81 20 04/10/19 19:23 98.1 F 79 22 137/81 97 04/10/19 16:00 98.2 F 78 20 150/70 92 04/10/19 15:40 78 18 04/10/19 12:00 98.8 F 64 20 122/76 93 Intake and Output 04/10/19 04/11/19 04/11/19 21:59 05:59 13:59 Intake Total 1050 Output Total 300 1000 1000 Balance 750 -1000 -1000 Intake: IV 250 Zithromax 500 mg In Dextrose 5% 250 in Water 250 ml @ 250 mls/hr IV Q24H [facility] Rx#:[id number] Oral 800 Output: Void Amount 300 1000 1000 Other: Meal Dinner Percent of Meal Consumed 100% Feeding Ability Independent Urine Appearance Clear Clear Clear Urine Color Pale Pale Bright Yellow Urine Odor Normal # Voids 2 Weight 199 lb Additional comments: General: In no acute distress, ambulating the halls Chest: Good aeration, no prolonged expiratory phase, scattered expiratory wheezes Cardiovascular: Regular, no edema Abdomen: Soft, nontender Neuro: Alert, oriented x3, ambulatory Medical - DS: Data - Impressions Date of Service: 04/07/19 Procedure(s): CT angio chest IMPRESSION: 1. Negative pulmonary CTA 2. Mild centrilobular emphysema. Clinical correlation for smoking history recommended 3. Bilateral lower lobe infiltrate, right worse on left. Right lower lobe pneumonia is possible 4. Small hiatal hernia Date of Service: 04/07/19 Procedure(s): XR chest 2V IMPRESSION: Negative PA and lateral chest x-ray Medical - DS: A/P - Patient/Caregiver Discharge Instructions Activity: increase activity as tolerated Diet: Regular Diet Additional Instructions: Smoking cessation You have been prescribed a new inhaler, it is called Flovent (generic is fluticasone). This is the same medicine that is in your Flonase to use for allergies. In the morning, use your DuoNeb (nebulized medication). Following that use the Flovent and your Spiriva. Use the DuoNeb 4 times a day. I have prescribed a small quantity of cough syrup for when your cough becomes uncontrollable. I have also prescribed a tablet to help with a dry cough. Continue to use Mucinex to help loosen up secretions. Continue to use the flutter valve (the one you blow into) to help loosen up secretions. Congratulations on not having smoked in almost 2 weeks. Continuing to be a non- smoker will be the best therapy for your COPD and will help prevent it from worsening. - Follow up Plan Follow up with: Holley Stanley ARNP [Primary Care Provider] - Helder Hollis MD [Physician] - (1-2 weeks) Disposition: Home, Self-Care Prognosis: Fair Rehab Potential: Fair Overall status at discharge: patient is progressing back to baseline Medical - DS: Qual - VTE Deep Vein Thrombosis/Pulmonary Embolism Present on Admission: No
== END 2019-04-11 12:50 | disposition home or self-care (01) | DRG 190 ==
LOC: ED 10:37 → MEDSUR 17:49
PROVIDERS: ADMIT Internal Medicine; ATTEND Internal Medicine